=== PATIENT | male | born 1965 | race Caucasian/White ===

== ENCOUNTER → 2020-08-20 | Outpatient (CLI) | payer OTHER | END | disposition home or self-care (01) | LOC: RADMRIMAIN 15:02 | PROVIDERS: ATTEND Family Medicine | DX: Z53.9 Procedure and treatment not carried out, unspecified reason (principal) ==

== ENCOUNTER → 2021-08-19 | Outpatient (CLI) | payer OTHER ==
[2021-08-19 22:34] LABS: Protein, Total 7.1 g/dL (6.2-8.2)
[2021-08-19 23:57] LABS: ALT 32 U/L (10-49); AST 21 U/L (14-35); Total Protein 7.1 g/dL (6.2-8.2)
[2021-08-20] LABS: Anti-DNA, DS unit <1.0 IU/mL; DNA Double-Stranded NEGATIVE (NEGATIVE)
[2021-08-20 13:48] LABS: Lyme IgG/IgM 0.04 Index
[2021-08-20 14:06] LABS: Gamma Globulin 1.19 g/dL (0.70-1.50)
== END | disposition home or self-care (01) ==
LOC: LABWHC1 14:50
PROVIDERS: ATTEND Family Medicine
DX: G62.9 Polyneuropathy, unspecified (principal)
CPT/HCPCS: 36415; 82607; 83036; 84155; 84165; 84207; 84425; 84439; 84443; 84450; 84460; 85652; 86038; 86225; 86618; 86780

== ENCOUNTER 2023-07-29 08:18 | Day surgery (SDC) | payer OTHER ==
[~2023-07-29 08:18] MED LIST: ONDANSETRON 4 MG/2 ML VIAL IVP PRN
[2023-07-29] MEDS: LACTATED RINGERS 1,000 ML IV SCH (09:11)
[2023-07-29] MEDS: LIDOCAINE 1% (10MG/ML) FOR IV START INTRADERMA PRN (09:11)
[2023-07-29] MEDS ORDERED: PROPOFOL 10 MG/ML 20 ML VIAL IV ONE (09:50)
[2023-07-29 09:51] VITALS: RESP 16; TEMP 98.2
--- NOTE | 2023-07-29 10:14 | P.PCN ---
Date of Procedure: 07/29/23 Procedure(s) Performed: BRIEF HISTORY: Patient is a 57-year-old pleasant white male scheduled for an elective colonoscopy as a part of screening for colon cancer. PROCEDURE PERFORMED: Colonoscopy. PREOPERATIVE DIAGNOSIS: Screening for colon cancer. IV sedation per Anesthesia. PROCEDURE: After informed consent was obtained, the patient, was brought into the endoscopy unit. IV sedation was administered by Anesthesia under continuous monitoring. Digital rectal examination was normal. Initially the Olympus CF-160 flexible video colonoscope was then inserted in the rectum, gradually advanced into the cecum without any difficulty. Careful examination was performed as the scope was gradually being withdrawn. Ileocecal valve and the appendiceal orifice were visualized and appeared normal. Prep was excellent. Mucosa of the cecum, ascending colon, transverse colon, descending colon, sigmoid colon, and rectum appeared normal. Retroflexion was performed in the rectum and grade 2 internal hemorrhoids were seen. The patient tolerated the procedure well. IMPRESSION: Normal-appearing colon from rectum to cecum with no evidence of colorectal neoplasia. Grade 2 internal hemorrhoids. RECOMMENDATIONS: Findings of this examination were discussed with the patient as well as his family. He was advised to have repeat screening colonoscopy in 10 years..
[2023-07-29 10:47] VITALS: BP 116/69; PULSE 69
== END 2023-07-29 11:01 | disposition home or self-care (01) ==
LOC: ORWHC2ENDO 08:18
PROVIDERS: ATTEND Internal Medicine Gastroenterology
DX: Z12.11 Encounter for screening for malignant neoplasm of colon (principal); K64.1 Second degree hemorrhoids; I10 Essential (primary) hypertension; F10.90 Alcohol use, unspecified, uncomplicated; Z79.899 Other long term (current) drug therapy
CPT/HCPCS: 45378; J2704